=== PATIENT | male | born 1985 | race Caucasian/White ===

== ENCOUNTER 2018-11-26 20:22 | Inpatient (IN) | payer OTHER ==
[2018-11-27] LABS: BASO % 0.4 % (0-2.0); EOS % 2.3 % (0-4.5); HEMATOCRIT 42.1 % (35.4-49); HEMOGLOBIN 14.8 GM/dL (11.7-16.9); LYMPH % 47.6 % (8-40); MCH 32.6 pg (25.7-33.7); MCHC 35.2 g/dl (32.0-35.9); MEAN CELL VOLUME 92.5 fl (80-96); MEAN PLT VOLUME 9.7 fl (7.5-11.1); MONO % 6.5 % (3.8-10.2); NEUT % 43.2 % (42.8-82.8); PLATELET COUNT 215 K/MM3 (134-434); RBC 4.55 M/mm3 (4.00-5.60); RDW 12.7 % (11.9-15.9); WHITE BLOOD COUNT 8.4 K/mm3 (4.0-10.0)
[2018-11-27 00:02] LABS: URINE APPEARANCE CLEAR; URINE BILIRUBIN NEGATIVE (<2.0 mg/dL); URINE COLOR LTYELLOW; URINE GLUCOSE (UA) 3+ (NEGATIVE); URINE KETONE NEGATIVE (NEGATIVE); URINE LEUK ESTERASE NEGATIVE (NEGATIVE); URINE NITRITE NEGATIVE (NEGATIVE); URINE PROTEIN NEGATIVE (NEGATIVE); URINE UROBILINOGEN NEGATIVE mg/dL (0.2-1.0)
[2018-11-27 01:11] LABS: GLUCOSE,RANDOM 88 mg/dL (74-106)
[2018-11-27 01:13] LABS: ALBUMIN 3.9 g/dl (3.4-5.0); ANION GAP 8 MMOL/L (8-16); BILIRUBIN,TOTAL 0.7 mg/dL (0.2-1); BLOOD UREA NITROGEN 15 mg/dL (7-18); CALCIUM 8.8 mg/dL (8.5-10.1); CHLORIDE 103 mmol/L (98-107); CO2 26 mmol/L (21-32); CREATININE 0.6 mg/dL (0.55-1.3); LIPASE 963 U/L (73-393); POTASSIUM 3.3 mmol/L (3.5-5.1); SODIUM 137 mmol/L (136-145); TOT PROT 7.3 g/dl (6.4-8.2)
[2018-11-27 01:14] LABS: ALK PHOS 172 U/L (45-117); SGOT/AST 47 U/L (15-37); SGPT/ALT 37 U/L (13-61)
[2018-11-27 01:18] LABS: ACETONE SERUM NEGATIVE (NEGATIVE)
--- NOTE | 2018-11-27 01:51 | PDOC ---
History of Present Illness - General Time Seen by Provider: 11/27/18 00:09 Past History - Past Medical History Allergies/Adverse Reactions: Allergies Allergy/AdvReac Type Severity Reaction Status Date / Time No Known Allergies Allergy Verified 11/27/18 03:44 ED Treatment Course - LABORATORY CBC & Chemistry Diagram: 11/26/18 22:20 11/26/18 22:20 - ADDITIONAL ORDERS Additional order review: Laboratory Results 11/27/18 11/26/18 11/26/18 01:00 22:20 22:20 Sodium 137 Potassium 3.3 L Chloride 103 Carbon Dioxide 26 Anion Gap 8 BUN 15 Creatinine 0.6 Creat Clearance w eGFR > 60 POC Glucometer 115 Random Glucose 88 Calcium 8.8 Total Bilirubin 0.7 AST 47 H ALT 37 Alkaline Phosphatase 172 H Total Protein 7.3 Albumin 3.9 Lipase 963 H Urine Color Ltyellow Urine Appearance Clear Urine pH 7.0 Ur Specific [place] 1.046 H Urine Protein Negative Urine Glucose (UA) 3+ H Urine Ketones Negative Urine Blood Negative Urine Nitrite Negative Urine Bilirubin Negative Urine Urobilinogen Negative Ur Leukocyte Esterase Negative Acetone, Qual Negative 11/27/18 11/26/18 01:00 22:20 RBC 4.55 MCV 92.5 MCHC 35.2 RDW 12.7 MPV 9.7 Neutrophils % 43.2 Lymphocytes % 47.6 H Monocytes % 6.5 Eosinophils % 2.3 Basophils % 0.4 POC Glucometer 115 - RADIOLOGY Radiology Studies Ordered: Category Date Time Status GALLBLADDER US [US] Stat Ultrasound 11/27/18 01:30 Ordered Medical Decision Making - Medical Decision Making 11/27/18 01:50 patient evaluated during downtime. see paper record for details. *DC/Admit/Observation/Transfer Diagnosis at time of Disposition: Serum lipase elevation - Discharge Dispostion Condition at time of disposition: Fair Decision to Admit order: Yes - Referrals - Patient Instructions - Post Discharge Activity
[2018-11-27] MEDS ORDERED: KCL 10 MEQ IVPB 10 MEQ/100 ML INFUS.BAG IVPB SCH (02:00)
[2018-11-27] MEDS ORDERED: KCL 10 MEQ IVPB 10 MEQ/100 ML INFUS.BAG IVPB ONE (03:17)
[2018-11-27] MEDS ORDERED: METOCLOPRAMIDE HCL INJECTION 10 MG/2 ML VIAL ONE (03:37)
[2018-11-27] MEDS: SODIUM CHLORIDE 0.9%/KCL 20 MEQ/1,000 ML INFUS.BAG IV SCH (04:04)
--- NOTE | 2018-11-27 05:35 | PN ---
Teaching Attending Note Name of Resident: Russell Palumbo ATTENDING PHYSICIAN STATEMENT I saw and evaluated the patient. I reviewed the resident's note and discussed the case with the resident. I agree with the resident's findings and plan as documented. SUBJECTIVE: Seen and examined; please refer to resident note for further historical information. Briefly, this is a 33 y/o male presenting to the ER for 2-3 weeks malaise. Saw PCP and was found to have TG 335 and was started on medication ( unknown but endorses compliance). Today he went to his PCP who sent him here for another lab abnormality (fingerstick to 300). He has no other complaints other than generalized malaise. Lipase in 900s (upper limit of normal 393 which is <3x); denies abdominal pain, nausea, and vomitting. 10 sys ROS done and negative aside from HPI PMH, PSH, Family hx, Social hx reviewed Medication list reviewed; negative aside from HPI OBJECTIVE: VS, labs, imaging reviewed NAD, AAO, resting comfortably in bed NC AT EOMI PERRLA RRR s1/2 no mgr Lungs CTAB, w/ sym exp NT ND +BS CN2-12 wnl, no fnd Normal mood, appropriate affect EKG reviewed Imaging reviewed ASSESSMENT AND PLAN: Patient presents after being sent in by his PCP for lab abnormalities; he has some malaise. Found to have elevated lipase but not quite 3x's elevated as well as negative abdominal imaging and denies any abdominal pain. 1) Elevated lipase -Negative imaging and no sx. Could be due to esophagitis/gastritis (he will drink 8 beers when he goes out and this was done on ). Protonix PO, monitor 2) Malaise likely 2/2 Uncontrolled DM2 with hyperglycemia. -Likely due to uncontrolled DM (A1c >15) on last check. Continue home insulin and place on SSI. Probably will need meal time insulin. Consider OP referral to endocrine. Got SSI before he came here so glucose normal. 3) Elevated alk phos/AST -Probably due to drinking night; repeat. Check RUQ U/S and ggt given # 1 4) Hypertriglyceridemia -Rechecking lipid pannel; confirming home meds. Will continue. Full Code
--- NOTE | 2018-11-27 06:09 | HP ---
CHIEF COMPLAINT: Malaise PCP: Dr. Jay Gutierres HISTORY OF PRESENT ILLNESS: The patient is a 33 yo m w/ PMH HLD who was sent in by his PCP for evaluation. The patient has been experiencing a feeling of generalized malasie for the past 2-3 weeks. The patient went to his PCP's office, who ran some tests. His TAG at this visit was found to be 335 and his Hb a1c was found to be over 15. His PCP placed him on metformin and farxiga. The next day, the patient's BGM was found to be 393, at which point his PCP sent him for evaluation. Recent Travel: none PAST MEDICAL HISTORY: none PAST SURGICAL HISTORY: appendectomy Social History: Smoking: denies Alcohol: social Drugs: denies Family History: non-contributory Allergies No Known Allergies Allergy (Verified 11/27/18 03:44) HOME MEDICATIONS: REVIEW OF SYSTEMS CONSTITUTIONAL: Absent: fever, chills, diaphoresis, loss of appetite, weight change HEENT: Absent: rhinorrhea, nasal congestion, throat pain, throat swelling, difficulty swallowing, mouth swelling, ear pain, eye pain, visual changes CARDIOVASCULAR: Absent: chest pain, syncope, palpitations, irregular heart rate, lightheadedness , peripheral edema RESPIRATORY: Absent: cough, shortness of breath, dyspnea with exertion, orthopnea, wheezing, stridor, hemoptysis GASTROINTESTINAL: Absent: abdominal pain, abdominal distension, nausea, vomiting, diarrhea, constipation, melena, hematochezia GENITOURINARY: Absent: dysuria, frequency, urgency, hesitancy, hematuria, flank pain, genital pain MUSCULOSKELETAL: Absent: myalgia, arthralgia, joint swelling, back pain, neck pain SKIN: Absent: rash, itching, pallor HEMATOLOGIC/IMMUNOLOGIC: Absent: easy bleeding, easy bruising, lymphadenopathy, frequent infections ENDOCRINE: Absent: unexplained weight gain, unexplained weight loss, heat intolerance, cold intolerance NEUROLOGIC: Absent: headache, focal weakness or paresthesias, dizziness, unsteady gait, seizure, mental status changes, bladder or bowel incontinence PSYCHIATRIC: Absent: anxiety, depression, suicidal or homicidal ideation, hallucinations. PHYSICAL EXAMINATION Vital Signs - 24 hr 11/26/18 20:25 Temperature 98.0 F Pulse Rate 93 H Respiratory 20 Rate Blood Pressure 117/73 O2 Sat by Pulse 97 Oximetry (%) GENERAL: Awake, alert, and fully oriented, in no acute distress. HEAD: Normal with no signs of trauma. EYES: Pupils equal, round and reactive to light, extraocular movements intact, sclera anicteric, conjunctiva clear. No lid lag. LUNGS: Breath sounds equal, clear to auscultation bilaterally. No wheezes, and no crackles. No accessory muscle use. HEART: Regular rate and rhythm, normal S1 and S2 without murmur, rub or gallop. ABDOMEN: Soft, nontender, not distended, normoactive bowel sounds, no guarding, no rebound, no masses. No hepatomegaly or splenomegaly. LOWER EXTREMITIES: 2+ pulses, warm, well-perfused. No calf tenderness. No peripheral edema. NEUROLOGICAL: Cranial nerves II-X intact. Normal speech. SKIN: Warm, dry, normal turgor, no rashes or lesions noted, normal capillary refill. Laboratory Results - last 24 hr 11/26/18 11/26/18 11/26/18 22:20 22:20 22:20 WBC 8.4 RBC 4.55 Hgb 14.8 Hct 42.1 MCV 92.5 MCH 32.6 MCHC 35.2 RDW 12.7 Plt Count 215 MPV 9.7 Absolute Neuts (auto) 3.6 Neutrophils % 43.2 Lymphocytes % 47.6 H Monocytes % 6.5 Eosinophils % 2.3 Basophils % 0.4 Nucleated RBC % 0 Sodium 137 Potassium 3.3 L Chloride 103 Carbon Dioxide 26 Anion Gap 8 BUN 15 Creatinine 0.6 Creat Clearance w eGFR > 60 POC Glucometer Random Glucose 88 Calcium 8.8 Total Bilirubin 0.7 AST 47 H ALT 37 Alkaline Phosphatase 172 H Total Protein 7.3 Albumin 3.9 Lipase 963 H Urine Color Ltyellow Urine Appearance Clear Urine pH 7.0 Ur Specific [place] 1.046 H Urine Protein Negative Urine Glucose (UA) 3+ H Urine Ketones Negative Urine Blood Negative Urine Nitrite Negative Urine Bilirubin Negative Urine Urobilinogen Negative Ur Leukocyte Esterase Negative Acetone, Qual Negative 11/27/18 01:00 WBC RBC Hgb Hct MCV MCH MCHC RDW Plt Count MPV Absolute Neuts (auto) Neutrophils % Lymphocytes % Monocytes % Eosinophils % Basophils % Nucleated RBC % Sodium Potassium Chloride Carbon Dioxide Anion Gap BUN Creatinine Creat Clearance w eGFR POC Glucometer 115 Random Glucose Calcium Total Bilirubin AST ALT Alkaline Phosphatase Total Protein Albumin Lipase Urine Color Urine Appearance Urine pH Ur Specific [place] Urine Protein Urine Glucose (UA) Urine Ketones Urine Blood Urine Nitrite Urine Bilirubin Urine Urobilinogen Ur Leukocyte Esterase Acetone, Qual ASSESSMENT/PLAN: The patient is a 42 yo m w/ no PMH who was sent to ed by his pcp for high blood sugar. #high blood sugar/A1c -recently started on metformin 1g daily, farxiga 10mg daily, basaglar 30u daily -A1c >15 by PCP lab work -BGM ACHS -ISS achs -holding home DM meds #HLD -am lipid panel #Elevated liver enzymes -ast 47, Alp elevated -ggt -RUQ US #FEN -no fluids indicated -lytes WNL -diabetic diet #prophy -SCDs -patient ambulatory #Dispo -admit med surg Visit type - Emergency Visit Emergency Visit: Yes ED Registration Date: 11/27/18 Care time: The patient presented to the Emergency Department on the above date and was hospitalized for further evaluation of their emergent condition. - New Patient This patient is new to me today: Yes Date on this admission: 11/27/18 - Critical Care Critical Care patient: No
[2018-11-27] MEDS: SODIUM CHLORIDE 1,000 ML IV SCH ×2 (06:21→11:19)
[2018-11-27] MEDS: INSULIN SLIDING SCALE (NOVOLOG) 1 VIAL SQ SCH ×4 (06:22→21:21)
[2018-11-27] MEDS ORDERED: PATIENT'S OWN MEDICATION (NON-FORMULARY) (Dapagliflozin Propanediol [Farxiga] 10 MG) PO SCH (12:00)
[2018-11-27] MEDS ORDERED: PATIENT'S OWN MEDICATION (NON-FORMULARY) (Insulin Glargine,Hum.Rec.Anlog [Basaglar Kwikpen SQ SCH (12:00)
[2018-11-27 14:32] LABS: BASO % 0.5 % (0-2.0); EOS % 2.2 % (0-4.5); HEMATOCRIT 35.8 % (35.4-49); HEMOGLOBIN 12.8 GM/dL (11.7-16.9); LYMPH % 34.7 % (8-40); MCH 33.3 pg (25.7-33.7); MCHC 35.7 g/dl (32.0-35.9); MEAN CELL VOLUME 93.4 fl (80-96); MONO % 5.7 % (3.8-10.2); NEUT % 56.9 % (42.8-82.8); PLATELET COUNT 184 K/MM3 (134-434); RBC 3.83 M/mm3 (4.00-5.60); RDW 12.6 % (11.9-15.9)
[2018-11-27] MEDS: metFORMIN HCL 500 MG TABLET (FP) PO SCH ×2 (14:48→21:18)
[2018-11-27 14:51] LABS: ALK PHOS 123 U/L (45-117); ANION GAP 7 MMOL/L (8-16); BILIRUBIN,TOTAL 0.7 mg/dL (0.2-1); BLOOD UREA NITROGEN 15 mg/dL (7-18); CALCIUM 8.3 mg/dL (8.5-10.1); CHLORIDE 106 mmol/L (98-107); CO2 24 mmol/L (21-32); CREATININE 0.8 mg/dL (0.55-1.3); GLUCOSE,RANDOM 283 mg/dL (74-106); POTASSIUM 4.3 mmol/L (3.5-5.1); SGOT/AST 33 U/L (15-37); SGPT/ALT 36 U/L (13-61); SODIUM 137 mmol/L (136-145); TOT PROT 5.5 g/dl (6.4-8.2)
[2018-11-27] MEDS: INSULIN (LEVEMIR) 100 UNITS/ML UNITS SQ SCH (21:21)
[2018-11-28] MEDS: INSULIN SLIDING SCALE (NOVOLOG) 1 VIAL SQ SCH ×4 (06:24→22:53)
[2018-11-28 06:33] LABS: HEMATOCRIT 37.3 % (35.4-49); HEMOGLOBIN 12.8 GM/dL (11.7-16.9); MCH 31.8 pg (25.7-33.7); MCHC 34.4 g/dl (32.0-35.9); MEAN CELL VOLUME 92.5 fl (80-96); MEAN PLT VOLUME 9.4 fl (7.5-11.1); PLATELET COUNT 188 K/MM3 (134-434); RBC 4.03 M/mm3 (4.00-5.60); RDW 12.8 % (11.9-15.9); WHITE BLOOD COUNT 5.4 K/mm3 (4.0-10.0)
[2018-11-28 06:41] LABS: PROTHROMBIN TIME (PATIENT) 11.8 SEC (9.7-13.0)
[2018-11-28] MEDS: SODIUM CHLORIDE 1,000 ML IV SCH (06:45)
[2018-11-28] MEDS: SODIUM CHLORIDE 0.9%/KCL 20 MEQ/1,000 ML INFUS.BAG IV SCH (06:45)
[2018-11-28 06:53] LABS: ANION GAP 7 MMOL/L (8-16); BLOOD UREA NITROGEN 13 mg/dL (7-18); CALCIUM 8.3 mg/dL (8.5-10.1); CHLORIDE 110 mmol/L (98-107); CO2 24 mmol/L (21-32); CREATININE 0.4 mg/dL (0.55-1.3); GLUCOSE,RANDOM 74 mg/dL (74-106); MAGNESIUM 1.9 mg/dL (1.8-2.4); PHOSPHOROUS 4.4 mg/dL (2.5-4.9); POTASSIUM 3.3 mmol/L (3.5-5.1); SODIUM 141 mmol/L (136-145)
--- NOTE | 2018-11-28 11:56 | EKG ---
Test Reason : Blood Pressure : / mmHG Vent. Rate : 065 BPM Atrial Rate : 065 BPM P-R Int : 146 ms QRS Dur : 100 ms QT Int : 422 ms P-R-T Axes : 001 082 051 degrees QTc Int : 438 ms NORMAL SINUS RHYTHM EARLY REPOLARIZATION NORMAL ECG NO PREVIOUS ECGS AVAILABLE Confirmed by MARY MELENDEZ, MELLISA ([id number]) on 11/28/2018 11:56:44 AM Referred By: Confirmed By:MELLISA HERNANDEZ MD
[2018-11-28] MEDS: metFORMIN HCL 500 MG TABLET (FP) PO SCH ×2 (17:15→22:51)
[2018-11-28] MEDS ORDERED: INSULIN (NOVOLOG) ASPART 100 UNITS/ML 10ML VIAL ONE (18:24)
--- NOTE | 2018-11-28 19:36 | PN ---
Progress Note, Physician History of Present Illness: STABLE - Current Medication List Current Medications: Active Medications Potassium Chloride/Sodium Chloride (Ns+20 Meq Kcl -) 20 meq in 1,000 mls @ 125 mls/hr IV ASDIR [facility] Last Admin: 11/28/18 06:45 Dose: Not Given Sodium Chloride (Normal Saline -) 1,000 mls @ 125 mls/hr IV ASDIR [facility] Last Admin: 11/28/18 06:45 Dose: Not Given Insulin Aspart (Novolog Vial Sliding Scale -) 1 vial SQ ACHS [facility]; Protocol Last Admin: 11/28/18 17:16 Dose: 4 units Insulin Detemir (Levemir Vial) 30 units SQ HS [facility] Last Admin: 11/27/18 21:21 Dose: 30 units Metformin HCl (Glucophage -) 1,000 mg PO BID [facility] Last Admin: 11/28/18 17:15 Dose: Not Given Non-Formulary Medication (Dapagliflozin Propanediol [Farxiga]) 10 mg PO DAILY [facility] - Objective Vital Signs: Vital Signs Temperature 98.1 F 11/28/18 13:47 Pulse Rate 67 11/28/18 13:47 Respiratory Rate 20 11/28/18 13:47 Blood Pressure 114/59 L 11/28/18 13:47 O2 Sat by Pulse Oximetry (%) 98 11/27/18 20:48 Constitutional: Yes: No Distress HENT: Yes: Atraumatic Neck: Yes: Supple Cardiovascular: Yes: Regular Rate and Rhythm Respiratory: Yes: CTA Bilaterally Gastrointestinal: Yes: Normal Bowel Sounds Extremities: Yes: WNL Edema: No Peripheral Pulses WNL: Yes Labs: CBC, BMP 11/28/18 05:15 11/28/18 05:15 INR, PTT INR 1.00 (0.83-1.09) 11/28/18 05:15 Problem List - Problems (1) Diabetes Assessment/Plan: on insulin and metformin bgms Code(s): E11.9 - TYPE 2 DIABETES MELLITUS WITHOUT COMPLICATIONS (2) Serum lipase elevation Assessment/Plan: follow up levels gi consult Code(s): R74.8 - ABNORMAL LEVELS OF OTHER SERUM ENZYMES Assessment/Plan COVERING FOR DR BROWER TODAY
[2018-11-28] MEDS ORDERED: POTASSIUM CHLORIDE TABS 20 MEQ TABLET.ER (FP) PO ONE (20:00)
[2018-11-28 20:11] LABS: AMYLASE 47 U/L (25-115); LIPASE 148 U/L (73-393)
[2018-11-28] MEDS: INSULIN (LEVEMIR) 100 UNITS/ML UNITS SQ SCH (22:53)
--- NOTE | 2018-11-29 01:09 | CONSULT ---
Consult Consult Specialty:: endocrine Referred by:: dr.elizabeth walden Reason for Consultation:: diabetes mellitus hyperglycemia - History of Present Illness Chief Complaint: high sugars History of Present Illness: 33 y/o male presenting with uncontrolled diabetes mellitus, recent diagnosis and started on oral agent,how ever he was not checking his sugars,and was not on strict diet. Saw PCP and was found to have TG 335 and was started on medication .he was also found to have lipase 900, and bs over 300mg/dl.he has been admitted for pancreatites and uncontrolled diabetes,he denies nausea vomiting,fever cough or chest pain - Alcohol/Substance Use Hx Alcohol Use: No - Smoking History Smoking history: Never smoked Home Medications - Allergies Allergies/Adverse Reactions: Allergies Allergy/AdvReac Type Severity Reaction Status Date / Time No Known Allergies Allergy Verified 11/27/18 03:44 - Home Medications Home Medications: Ambulatory Orders Dapagliflozin Propanediol [Farxiga] 10 mg PO DAILY 11/27/18 Dapagliflozin Propanediol [Farxiga] 10 mg PO DAILY 11/27/18 Insulin Glargine,Hum.rec.anlog [Basaglar Kwikpen U-100] 30 unit SQ DAILY Metformin HCl [Glucophage] 1,000 mg PO DAILY 11/27/18 Review of Systems - Review of Systems Constitutional: reports: Lethargy, Weakness Eyes: reports: Blurred Vision HENT: reports: No Symptoms Neck: reports: No Symptoms Cardiovascular: reports: No Symptoms Respiratory: reports: No Symptoms Gastrointestinal: reports: Bloating, Nausea Genitourinary: reports: No Symptoms Breasts: reports: No Symptoms Reported Musculoskeletal: reports: No Symptoms Integumentary: reports: No Symptoms Neurological: reports: No Symptoms Endocrine: reports: Unexplained Weight Loss Physical Exam Vital Signs: Vital Signs Temperature 97.9 F 11/29/18 00:19 Pulse Rate 61 11/29/18 00:19 Respiratory Rate 20 11/29/18 00:19 Blood Pressure 111/66 11/29/18 00:19 O2 Sat by Pulse Oximetry (%) 98 11/28/18 21:00 Constitutional: Yes: Anxious Eyes: Yes: EOM Intact HENT: Yes: Normocephalic Neck: Yes: Trachea Midline Cardiovascular: Yes: Regular Rate and Rhythm Respiratory: Yes: CTA Bilaterally Gastrointestinal: Yes: Normal Bowel Sounds ...Rectal Exam: Yes: Deferred Renal/: Yes: WNL Breast(s): Yes: WNL Musculoskeletal: Yes: WNL Extremities: Yes: WNL Edema: No Integumentary: Yes: WNL Neurological: Yes: Alert, Oriented Labs: CBC, BMP 11/28/18 05:15 11/28/18 05:15 Problem List - Problems (1) Diabetes Code(s): E11.9 - TYPE 2 DIABETES MELLITUS WITHOUT COMPLICATIONS (2) Serum lipase elevation Code(s): R74.8 - ABNORMAL LEVELS OF OTHER SERUM ENZYMES Assessment/Plan Current Active Problems Diabetes (Acute) Serum lipase elevation (Acute) Abnormal Lab Results 11/28/18 05:15 Potassium 3.3 L Chloride 110 H Anion Gap 7 L Creatinine 0.4 L Calcium 8.3 L Laboratory Results - last 24 hr 11/28/18 11/28/18 11/28/18 05:15 05:15 05:15 WBC 5.4 RBC 4.03 Hgb 12.8 Hct 37.3 MCV 92.5 MCH 31.8 MCHC 34.4 RDW 12.8 Plt Count 188 MPV 9.4 PT with INR 11.80 INR 1.00 PTT (Actin FS) 29.0 Sodium 141 Potassium 3.3 L Chloride 110 H Carbon Dioxide 24 Anion Gap 7 L BUN 13 Creatinine 0.4 L Creat Clearance w eGFR > 60 POC Glucometer Random Glucose 74 Calcium 8.3 L Phosphorus 4.4 Magnesium 1.9 Total Amylase 47 Lipase 148 11/28/18 11/28/18 11/28/18 05:34 11:54 17:13 WBC RBC Hgb Hct MCV MCH MCHC RDW Plt Count MPV PT with INR INR PTT (Actin FS) Sodium Potassium Chloride Carbon Dioxide Anion Gap BUN Creatinine Creat Clearance w eGFR POC Glucometer 77 187 240 Random Glucose Calcium Phosphorus Magnesium Total Amylase Lipase 11/28/18 22:52 WBC RBC Hgb Hct MCV MCH MCHC RDW Plt Count MPV PT with INR INR PTT (Actin FS) Sodium Potassium Chloride Carbon Dioxide Anion Gap BUN Creatinine Creat Clearance w eGFR POC Glucometer 237 Random Glucose Calcium Phosphorus Magnesium Total Amylase Lipase plan; bgm qid novolg insulin dose diet nutrition metformin 1000mg bid diabetic teaching levemir 30 unitsunit hs close follow up op
[2018-11-29] MEDS ORDERED: diphenhydrAMINE HCL 25 MG CAPSULE (FP) PO PRN (03:03)
[2018-11-29] MEDS: SODIUM CHLORIDE 0.9%/KCL 20 MEQ/1,000 ML INFUS.BAG IV SCH (05:29)
[2018-11-29] MEDS: INSULIN SLIDING SCALE (NOVOLOG) 1 VIAL SQ SCH ×4 (06:09→22:24)
[2018-11-29] MEDS: metFORMIN HCL 500 MG TABLET (FP) PO SCH ×2 (09:40→22:25)
--- NOTE | 2018-11-29 12:21 | CON.GI ---
Consult Consult Specialty:: GI Referred by:: Medicine Reason for Consultation:: Elevated lipase - History of Present Illness Chief Complaint: elevated FSG History of Present Illness: 33M with h/o newly diagnosed DM sent in for elevated blood glucose. GI consulted for elevated lipase. Unclear why checked. Was 963 on presentation. On next check was 148. Patient denies any recent abdominal pain, N/V. Digestive system feels good. Patient had CT A/P with IV contrast to assess elevated lipase, which was unremarkable Also had US with tiny gallbladder polyp, no stones, fatty liver - History Source History Provided By: Patient Limitations to Obtaining History: No Limitations - Past Medical History Endocrine: Yes: Diabetes Mellitus - Past Surgical History Past Surgical History: Yes: Appendectomy - Alcohol/Substance Use Hx Alcohol Use: No - Smoking History Smoking history: Never smoked Home Medications - Allergies Allergies/Adverse Reactions: Allergies Allergy/AdvReac Type Severity Reaction Status Date / Time No Known Allergies Allergy Verified 11/27/18 03:44 - Home Medications Home Medications: Ambulatory Orders Dapagliflozin Propanediol [Farxiga] 10 mg PO DAILY 11/27/18 Dapagliflozin Propanediol [Farxiga] 10 mg PO DAILY 11/27/18 Insulin Glargine,Hum.rec.anlog [Basaglar Kwikpen U-100] 30 unit SQ DAILY Metformin HCl [Glucophage] 1,000 mg PO DAILY 11/27/18 Review of Systems - Review of Systems Constitutional: reports: No Symptoms Eyes: reports: No Symptoms HENT: reports: No Symptoms Neck: reports: No Symptoms Cardiovascular: reports: No Symptoms Respiratory: reports: No Symptoms Gastrointestinal: reports: No Symptoms Musculoskeletal: reports: No Symptoms Integumentary: reports: No Symptoms Neurological: reports: No Symptoms Hematology/Lymphatic: reports: No Symptoms Psychiatric: reports: No Symptoms Physical Exam-GI Vital Signs: Vital Signs Temperature 98.7 F 11/29/18 09:34 Pulse Rate 69 11/29/18 09:34 Respiratory Rate 16 11/29/18 09:34 Blood Pressure 100/49 L 11/29/18 09:34 O2 Sat by Pulse Oximetry (%) 98 11/28/18 21:00 Constitutional: Yes: Well Nourished, No Distress, Calm Eyes: Yes: Conjunctiva Clear. No: Sclera Icterus Cardiovascular: Yes: Regular Rate and Rhythm Respiratory: Yes: CTA Bilaterally ...Palpate: Yes: Soft. No: Tenderness ...Rectal Exam: Yes: Deferred Edema: No Neurological: Yes: Alert, Oriented Labs: CBC, BMP 11/28/18 05:15 11/28/18 05:15 INR, PTT INR 1.00 (0.83-1.09) 11/28/18 05:15 Lipase on presentation 963, down to 148 thereafter Imaging - Results Cat Scan: Report Reviewed Ultrasound: Report Reviewed Assessment/Plan Elevated lipase - likely inconsequential. No symptoms of pancreatitis and no abnormal pancreatic imaging findings. No further work up required at this time.
[2018-11-29 14:16] VITALS: BMI 25.8
[2018-11-29] MEDS ORDERED: INSULIN (NOVOLOG) ASPART 100 UNITS/ML 10ML VIAL ONE ×2 (17:33→20:57)
[2018-11-29] MEDS ORDERED: INSULIN (LEVEMIR) 100 UNITS/ML UNITS SQ ONE (17:33)
[2018-11-29 20:22] LABS: ALBUMIN 3.3 g/dl (3.4-5.0); ALK PHOS 135 U/L (45-117); ANION GAP 8 MMOL/L (8-16); BILIRUBIN,TOTAL 0.4 mg/dL (0.2-1); BLOOD UREA NITROGEN 17 mg/dL (7-18); CALCIUM 8.6 mg/dL (8.5-10.1); CHLORIDE 103 mmol/L (98-107); CO2 26 mmol/L (21-32); CREATININE 0.7 mg/dL (0.55-1.3); GLUCOSE,RANDOM 244 mg/dL (74-106); SGOT/AST 10 U/L (15-37); SGPT/ALT 32 U/L (13-61); SODIUM 137 mmol/L (136-145); TOT PROT 6.4 g/dl (6.4-8.2)
[2018-11-29] MEDS: INSULIN (LEVEMIR) 100 UNITS/ML UNITS SQ SCH (22:24)
--- NOTE | 2018-11-29 22:57 | PN ---
Progress Note, Physician - Current Medication List Current Medications: Active Medications Insulin Aspart (Novolog Vial Sliding Scale -) 1 vial SQ ACHS [facility]; Protocol Last Admin: 11/29/18 22:24 Dose: 6 units Insulin Detemir (Levemir Vial) 30 units SQ HS [facility] Last Admin: 11/29/18 22:24 Dose: 30 units Metformin HCl (Glucophage -) 1,000 mg PO BID [facility] Last Admin: 11/29/18 22:25 Dose: 1,000 mg Non-Formulary Medication (Dapagliflozin Propanediol [Farxiga]) 10 mg PO DAILY [facility] - Objective Vital Signs: Vital Signs Temperature 98.7 F 11/29/18 22:00 Pulse Rate 84 11/29/18 22:00 Respiratory Rate 20 11/29/18 22:00 Blood Pressure 119/79 11/29/18 22:00 O2 Sat by Pulse Oximetry (%) 100 11/29/18 09:00 Labs: CBC, BMP 11/28/18 05:15 11/29/18 19:10 INR, PTT INR 1.00 (0.83-1.09) 11/28/18 05:15
[2018-11-30] MEDS: INSULIN SLIDING SCALE (NOVOLOG) 1 VIAL SQ SCH ×2 (06:55→11:26)
[2018-11-30 09:00] VITALS: TEMP 98.2
[2018-11-30] MEDS: metFORMIN HCL 500 MG TABLET (FP) PO SCH (10:00)
[2018-11-30 13:53] VITALS: BP 105/60; PULSE 81
== END 2018-11-30 15:17 | disposition home or self-care (01) | DRG 420 ==
LOC: JER 20:22 → JERBED 11-27 05:28 → J7W 11-27 08:32
PROVIDERS: ADMIT Internal Medicine; ATTEND Internal Medicine
DX: E11.65 Type 2 diabetes mellitus with hyperglycemia (principal); E78.1 Pure hyperglyceridemia; R74.8 Abnormal levels of other serum enzymes
CPT/HCPCS: 36415; 74177-TC; 76705-TC; 80048; 80053; 81003; 82009; 82150; 82962; 83036; 83690; 83735; 84100; 85025; 85027; 85610; 85730; 87086; 93005; 93010; 99281-25; J7030